=== PATIENT | male | born 1960 | race Caucasian/White ===

== ENCOUNTER 2021-06-12 18:55 | Inpatient (IN) ==
[2021-06-13] MEDS ORDERED: D5% in Water 1,000 ML IVC PRN (00:14)
[2021-06-13] MEDS ORDERED: *HR* Dextrose 50 % in Water (Syg) 50 ML SYRINGE IVP PRN (00:14)
[2021-06-13] MEDS ORDERED: Dextrose Gel 15 GM/37.5 ML TUBE PO PRN ×2 (00:14)
[2021-06-13] MEDS ORDERED: Insulin DETEMIR 100 UNIT/ML per UNIT SUBQ ONE (01:00)
[2021-06-13] MEDS: Insulin DETEMIR 100 UNIT/ML X5UNITS SUBQ SCH ×2 (08:26→21:56)
[2021-06-13] MEDS: Insulin LISPRO 300 UNITS/3 ML VIAL SUBQ SCH ×3 (08:27→17:26)
[2021-06-13] MEDS: Apixaban 5 MG TABLET PO SCH ×2 (08:29→21:47)
[2021-06-13] MEDS: Aspirin Enteric Coated 81 MG Tablet PO SCH (08:30)
[2021-06-13] MEDS: *HR* Metformin 500 MG TABLET PO SCH ×2 (08:30→21:48)
[2021-06-13] MEDS: Primidone 50 MG TABLET PO SCH (08:30)
[2021-06-13] MEDS: Isosorbide MONOnitrate (24 HR) 30 MG TAB.ER.24H PO SCH (08:30)
[2021-06-13] MEDS: Pregabalin 50 MG CAPSULE PO SCH ×2 (08:30→21:45)
[2021-06-13] MEDS: Topiramate 25 MG TABLET PO SCH (08:30)
[2021-06-13 08:31] LABS: Basophils # 0.1 K/mcL (0.0-0.2); Basophils % 0.6 %; Eosinophils # 0.3 K/mcL (0.0-0.6); Hematocrit 31.4 % (37.5-50.1); Hemoglobin 9.3 g/dL (12.9-16.9); Immature Granulocytes % 1.4 % (0-4); Lymphocytes # 1.4 K/mcL (0.6-4.6); Lymphocytes % 14.4 %; Mean Corpuscular HGB Conc 29.6 g/dL (31.6-35.5); Mean Corpuscular Hemoglobin 24.9 pg (28.0-33.3); Mean Platelet Volume 10.1 fL (9.4-12.4); Monocytes # 0.8 K/mcL (0.0-1.3); Monocytes % 8.7 %; Neutrophils # 6.8 K/mcL (1.6-8.9); Platelet Count 384 K/mcL (140-400); Red Blood Count 3.74 M/mcL (4.19-5.50); Red Cell Distribution Width 16.6 % (11.5-14.5); Segmented Neutrophils % 71.9 %; White Blood Count 9.5 K/mcL (4.3-11.1)
[2021-06-13 08:45] LABS: BUN/Creatinine Ratio 18 (6-26); Blood Urea Nitrogen 12 mg/dL (8-23); Calcium 8.9 mg/dL (8.6-10.3); Carbon Dioxide 23 mEq/L (23-29); Chloride 98 mEq/L (98-107); Glucose 299 mg/dL (70-105); Osmolality,Calculated 279 (280-300); Potassium 4.7 mEq/L (3.5-5.1); Sodium 129 mEq/L (136-145); eGFR For African Americans > 60 (> 60); eGFR For Non-African Americans > 60 (> 60)
[2021-06-14] MEDS: Apixaban 5 MG TABLET PO SCH ×2 (08:05→21:42)
[2021-06-14] MEDS: Pregabalin 50 MG CAPSULE PO SCH ×2 (08:05→21:42)
[2021-06-14] MEDS: Topiramate 25 MG TABLET PO SCH (08:06)
[2021-06-14] MEDS: Isosorbide MONOnitrate (24 HR) 30 MG TAB.ER.24H PO SCH (08:06)
[2021-06-14] MEDS: *HR* Metformin 500 MG TABLET PO SCH ×2 (08:06→21:42)
[2021-06-14] MEDS: *HR* OxyCODONE Immed Rel 5 MG TABLET PO PRN (08:06)
[2021-06-14] MEDS: Primidone 50 MG TABLET PO SCH (08:06)
[2021-06-14] MEDS: Insulin DETEMIR 100 UNIT/ML X5UNITS SUBQ SCH ×2 (08:07→21:47)
[2021-06-14] MEDS: Insulin LISPRO 300 UNITS/3 ML VIAL SUBQ SCH ×3 (08:08→18:07)
[2021-06-14] MEDS: Aspirin Enteric Coated 81 MG Tablet PO SCH (08:19)
[2021-06-14] MEDS: Budesonide/Formoterol 160/4.5 1 PUFF INH IH SCH (21:17)
[2021-06-14] MEDS: Doxycycline 100 MG CAPSULE PO SCH (21:42)
[2021-06-15 05:53] LABS: Basophils # 0.1 K/mcL (0.0-0.2); Basophils % 0.9 %; Eosinophils # 0.3 K/mcL (0.0-0.6); Eosinophils % 3.6 %; Hematocrit 29.6 % (37.5-50.1); Hemoglobin 8.7 g/dL (12.9-16.9); Immature Granulocytes % 1.2 % (0-4); Lymphocytes # 1.4 K/mcL (0.6-4.6); Lymphocytes % 17.2 %; Mean Corpuscular HGB Conc 29.4 g/dL (31.6-35.5); Mean Corpuscular Hemoglobin 24.2 pg (28.0-33.3); Mean Corpuscular Volume 82.5 fL (83.0-100.0); Mean Platelet Volume 10.2 fL (9.4-12.4); Monocytes # 0.7 K/mcL (0.0-1.3); Monocytes % 8.1 %; Neutrophils # 5.6 K/mcL (1.6-8.9); Platelet Count 396 K/mcL (140-400); Red Blood Count 3.59 M/mcL (4.19-5.50); Red Cell Distribution Width 16.6 % (11.5-14.5); White Blood Count 8.1 K/mcL (4.3-11.1)
[2021-06-15 06:12] LABS: BUN/Creatinine Ratio 20 (6-26); Blood Urea Nitrogen 15 mg/dL (8-23); Calcium 9.2 mg/dL (8.6-10.3); Carbon Dioxide 22 mEq/L (23-29); Chloride 100 mEq/L (98-107); Glucose 281 mg/dL (70-105); Osmolality,Calculated 285 (280-300); Potassium 4.6 mEq/L (3.5-5.1); Sodium 132 mEq/L (136-145); eGFR For African Americans > 60 (> 60); eGFR For Non-African Americans > 60 (> 60)
[2021-06-15] MEDS: Primidone 50 MG TABLET PO SCH (08:57)
[2021-06-15] MEDS: Topiramate 25 MG TABLET PO SCH (08:57)
[2021-06-15] MEDS: Pregabalin 50 MG CAPSULE PO SCH ×2 (08:57→21:03)
[2021-06-15] MEDS: Apixaban 5 MG TABLET PO SCH ×2 (08:57→21:03)
[2021-06-15] MEDS: *HR* Metformin 500 MG TABLET PO SCH ×2 (08:57→21:02)
[2021-06-15] MEDS: Isosorbide MONOnitrate (24 HR) 30 MG TAB.ER.24H PO SCH (08:57)
[2021-06-15] MEDS: Doxycycline 100 MG CAPSULE PO SCH ×2 (08:58→21:02)
[2021-06-15] MEDS: Aspirin Enteric Coated 81 MG Tablet PO SCH (08:58)
[2021-06-15] MEDS: *HR* OxyCODONE Immed Rel 5 MG TABLET PO PRN ×2 (09:02→21:02)
[2021-06-15] MEDS: Insulin LISPRO 300 UNITS/3 ML VIAL SUBQ SCH ×3 (09:03→16:38)
[2021-06-15] MEDS: Insulin DETEMIR 100 UNIT/ML X5UNITS SUBQ SCH ×2 (09:03→23:45)
[2021-06-15] MEDS: Budesonide/Formoterol 160/4.5 1 PUFF INH IH SCH ×2 (12:19→20:43)
[2021-06-16] MEDS: Acetaminophen 325 MG TABLET PO PRN ×2 (04:24→08:03)
[2021-06-16] MEDS: *HR* OxyCODONE Immed Rel 5 MG TABLET PO PRN ×2 (04:24→22:39)
[2021-06-16] MEDS: Pregabalin 50 MG CAPSULE PO SCH ×2 (08:03→20:42)
[2021-06-16] MEDS: Doxycycline 100 MG CAPSULE PO SCH ×2 (08:03→20:40)
[2021-06-16] MEDS: Apixaban 5 MG TABLET PO SCH ×2 (08:03→20:41)
[2021-06-16] MEDS: Isosorbide MONOnitrate (24 HR) 30 MG TAB.ER.24H PO SCH (08:03)
[2021-06-16] MEDS: Topiramate 25 MG TABLET PO SCH (08:03)
[2021-06-16] MEDS: *HR* Metformin 500 MG TABLET PO SCH ×2 (08:03→20:41)
[2021-06-16] MEDS: Primidone 50 MG TABLET PO SCH (08:04)
[2021-06-16] MEDS: Aspirin Enteric Coated 81 MG Tablet PO SCH (08:04)
[2021-06-16] MEDS: Insulin LISPRO 300 UNITS/3 ML VIAL SUBQ SCH ×3 (08:07→16:30)
[2021-06-16] MEDS: Insulin DETEMIR 100 UNIT/ML X5UNITS SUBQ SCH ×2 (08:07→20:45)
[2021-06-16] MEDS: Budesonide/Formoterol 160/4.5 1 PUFF INH IH SCH ×2 (10:14→20:57)
[2021-06-17] MEDS ORDERED: polyethylene glycoL 3350 17 GM POWD.PACK PO PRN (04:30)
[2021-06-17] MEDS: Apixaban 5 MG TABLET PO SCH ×2 (09:30→20:44)
[2021-06-17] MEDS: Pregabalin 50 MG CAPSULE PO SCH ×2 (09:30→20:43)
[2021-06-17] MEDS: *HR* Metformin 500 MG TABLET PO SCH ×2 (09:30→20:51)
[2021-06-17] MEDS: Doxycycline 100 MG CAPSULE PO SCH ×2 (09:31→20:46)
[2021-06-17] MEDS: *HR* OxyCODONE Immed Rel 5 MG TABLET PO PRN ×2 (09:31→20:44)
[2021-06-17] MEDS: Isosorbide MONOnitrate (24 HR) 30 MG TAB.ER.24H PO SCH (09:31)
[2021-06-17] MEDS: Primidone 50 MG TABLET PO SCH (09:32)
[2021-06-17] MEDS: Topiramate 25 MG TABLET PO SCH (09:32)
[2021-06-17] MEDS: Aspirin Enteric Coated 81 MG Tablet PO SCH (09:32)
[2021-06-17] MEDS: Insulin LISPRO 300 UNITS/3 ML VIAL SUBQ SCH ×3 (09:33→16:32)
[2021-06-17] MEDS: Insulin DETEMIR 100 UNIT/ML X5UNITS SUBQ SCH ×2 (10:03→20:51)
[2021-06-17] MEDS: Budesonide/Formoterol 160/4.5 1 PUFF INH IH SCH ×2 (10:10→20:24)
[2021-06-17] MEDS: Ondansetron ODT 4 MG TAB.RAPDIS SL PRN (17:17)
[2021-06-18] MEDS: Doxycycline 100 MG CAPSULE PO SCH ×2 (09:04→21:35)
[2021-06-18] MEDS: Aspirin Enteric Coated 81 MG Tablet PO SCH (09:04)
[2021-06-18] MEDS: Pregabalin 50 MG CAPSULE PO SCH ×2 (09:04→21:35)
[2021-06-18] MEDS: Topiramate 25 MG TABLET PO SCH (09:05)
[2021-06-18] MEDS: Apixaban 5 MG TABLET PO SCH ×2 (09:05→21:37)
[2021-06-18] MEDS: Primidone 50 MG TABLET PO SCH (09:05)
[2021-06-18] MEDS: Isosorbide MONOnitrate (24 HR) 30 MG TAB.ER.24H PO SCH (09:05)
[2021-06-18] MEDS: *HR* Metformin 500 MG TABLET PO SCH ×2 (09:05→21:37)
[2021-06-18] MEDS: Insulin DETEMIR 100 UNIT/ML X5UNITS SUBQ SCH ×2 (09:16→21:37)
[2021-06-18] MEDS: Insulin LISPRO 300 UNITS/3 ML VIAL SUBQ SCH ×3 (09:16→16:57)
[2021-06-18] MEDS: Budesonide/Formoterol 160/4.5 1 PUFF INH IH SCH ×2 (10:39→21:22)
[2021-06-19] MEDS: Aspirin Enteric Coated 81 MG Tablet PO SCH (08:32)
[2021-06-19] MEDS: *HR* Metformin 500 MG TABLET PO SCH ×2 (08:32→22:03)
[2021-06-19] MEDS: Pregabalin 50 MG CAPSULE PO SCH ×2 (08:32→22:03)
[2021-06-19] MEDS: Apixaban 5 MG TABLET PO SCH ×2 (08:33→22:05)
[2021-06-19] MEDS: Insulin DETEMIR 100 UNIT/ML X5UNITS SUBQ SCH ×2 (08:33→22:06)
[2021-06-19] MEDS: Topiramate 25 MG TABLET PO SCH (08:33)
[2021-06-19] MEDS: Isosorbide MONOnitrate (24 HR) 30 MG TAB.ER.24H PO SCH (08:33)
[2021-06-19] MEDS: Doxycycline 100 MG CAPSULE PO SCH ×2 (08:33→22:05)
[2021-06-19] MEDS: Primidone 50 MG TABLET PO SCH (08:33)
[2021-06-19] MEDS: Insulin LISPRO 300 UNITS/3 ML VIAL SUBQ SCH ×3 (08:37→17:23)
[2021-06-19] MEDS: Budesonide/Formoterol 160/4.5 1 PUFF INH IH SCH ×2 (10:56→20:25)
[2021-06-20 07:01] LABS: Hematocrit 33.3 % (37.5-50.1); Hemoglobin 9.7 g/dL (12.9-16.9); Mean Corpuscular HGB Conc 29.1 g/dL (31.6-35.5); Mean Corpuscular Hemoglobin 23.9 pg (28.0-33.3); Mean Platelet Volume 9.4 fL (9.4-12.4); Platelet Count 419 K/mcL (140-400); Red Blood Count 4.06 M/mcL (4.19-5.50); Red Cell Distribution Width 16.8 % (11.5-14.5); White Blood Count 7.5 K/mcL (4.3-11.1)
[2021-06-20 07:16] LABS: BUN/Creatinine Ratio 20 (6-26); Blood Urea Nitrogen 17 mg/dL (8-23); Calcium 9.3 mg/dL (8.6-10.3); Carbon Dioxide 26 mEq/L (23-29); Chloride 100 mEq/L (98-107); Glucose 195 mg/dL (70-105); Magnesium 1.9 mg/dL (1.6-2.6); Osmolality,Calculated 287 (280-300); Potassium 4.3 mEq/L (3.5-5.1); Sodium 135 mEq/L (136-145); eGFR For African Americans > 60 (> 60); eGFR For Non-African Americans > 60 (> 60)
[2021-06-20] MEDS: Insulin LISPRO 300 UNITS/3 ML VIAL SUBQ SCH ×3 (10:40→18:18)
[2021-06-20] MEDS: Budesonide/Formoterol 160/4.5 1 PUFF INH IH SCH ×2 (10:57→22:05)
[2021-06-20] MEDS: Apixaban 5 MG TABLET PO SCH ×2 (11:19→22:03)
[2021-06-20] MEDS: Acetaminophen 325 MG TABLET PO PRN (11:19)
[2021-06-20] MEDS: Pregabalin 50 MG CAPSULE PO SCH ×2 (11:19→22:05)
[2021-06-20] MEDS: Doxycycline 100 MG CAPSULE PO SCH ×2 (11:20→22:02)
[2021-06-20] MEDS: *HR* OxyCODONE Immed Rel 5 MG TABLET PO PRN (11:20)
[2021-06-20] MEDS: Topiramate 25 MG TABLET PO SCH (11:20)
[2021-06-20] MEDS: Ondansetron ODT 4 MG TAB.RAPDIS SL PRN (11:20)
[2021-06-20] MEDS: Aspirin Enteric Coated 81 MG Tablet PO SCH (11:21)
[2021-06-20] MEDS: Isosorbide MONOnitrate (24 HR) 30 MG TAB.ER.24H PO SCH (11:21)
[2021-06-20] MEDS: *HR* Metformin 500 MG TABLET PO SCH ×2 (11:21→22:04)
[2021-06-20] MEDS: Primidone 50 MG TABLET PO SCH (11:22)
[2021-06-20] MEDS: Insulin DETEMIR 100 UNIT/ML X5UNITS SUBQ SCH ×2 (11:25→22:07)
[2021-06-21 07:44] VITALS: BP 124/82; PULSE 67; RESP 18; TEMP 98
[2021-06-21] MEDS: Apixaban 5 MG TABLET PO SCH (08:38)
[2021-06-21] MEDS: Insulin LISPRO 300 UNITS/3 ML VIAL SUBQ SCH ×2 (08:38→13:02)
[2021-06-21] MEDS: Topiramate 25 MG TABLET PO SCH (08:39)
[2021-06-21] MEDS: Primidone 50 MG TABLET PO SCH (08:39)
[2021-06-21] MEDS: *HR* Metformin 500 MG TABLET PO SCH (08:39)
[2021-06-21] MEDS: Pregabalin 50 MG CAPSULE PO SCH (08:39)
[2021-06-21] MEDS: *HR* OxyCODONE Immed Rel 5 MG TABLET PO PRN (08:40)
[2021-06-21] MEDS: Aspirin Enteric Coated 81 MG Tablet PO SCH (08:40)
[2021-06-21] MEDS: Doxycycline 100 MG CAPSULE PO SCH (08:40)
[2021-06-21] MEDS: Isosorbide MONOnitrate (24 HR) 30 MG TAB.ER.24H PO SCH (08:40)
[2021-06-21] MEDS: Acetaminophen 325 MG TABLET PO PRN (08:40)
[2021-06-21] MEDS: Insulin DETEMIR 100 UNIT/ML X5UNITS SUBQ SCH (10:46)
[2021-06-21] MEDS: Budesonide/Formoterol 160/4.5 1 PUFF INH IH SCH (12:18)
[2021-06-21 12:20] VITALS: O2SAT 94
[2021-07-04] MEDS ORDERED: Cyanocobalamin (B-12) 1,000 MCG/ML VIAL IM SCH (09:00)
== END 2021-06-21 13:38 | disposition home health service (06) | DRG 560 ==
LOC: INPGRE 22:23
PROVIDERS: ADMIT Family Medicine; ATTEND Family Medicine